=== PATIENT | female | born 1980 | race Caucasian/White ===

== ENCOUNTER 2017-06-15 06:40 | Day surgery (SDC) | payer OTHER ==
--- NOTE | 2017-06-14 13:07 | HP ---
CC: [facility] HISTORY AND PHYSICAL: DATE OF ADMISSION: 06/15/17 - [facility] The patient is scheduled for surgery tomorrow, on 06/15/17, at [facility]. ATTENDING PHYSICIAN: Dr. Satish Williamson * (DICTATED BY ROSAURA EDWARDS) CHIEF COMPLAINT: Left breast nodule, status post fine-needle aspiration revealing atypical cells, here for excisional biopsy. HISTORY OF PRESENT ILLNESS: This is a 37-year-old female who, on self examination in February, noticed what she felt was a new lump in her left breast that she had not felt previously. She had an ultrasound done in February, which revealed dense fibroglandular tissue. There are no abnormalities seen. No solid or cystic areas identified. She then went on to have a mammogram in May 2017. Again, this revealed dense fibroglandular tissue, no suspicious areas were identified. Since the nodule or change in the left breast persistent , she then was referred on here to our office, to Dr. Williamson's, on 05/29/17, for evaluation. Prior to this, the patient has no prior history of breast disease or previous breast biopsies. She does take control pills, has been on these without a change in dose or type for several years. She has no prior pregnancies. Her family history is positive for a maternal great grandmother diagnosed with breast cancer. She also later had a history of paternal second cousins, two of those with breast cancer. On our evaluation, we were able to identify dominant nodule between the 1 to 2 o 'clock position of the left breast. This measured 8 to 10 mm in size. It was firm and mobile, but felt to be solid on examination. An ultrasound was done. This revealed a hypoechogenic region on the ultrasound, which correlates with the palpable findings. This measured 9 x 9 mm, in the same location. Back on 05/29/17, we did do a fine needle aspiration under ultrasound guidance. We have since received the cytology. This revealed atypical ductal epithelial cells with mild architectural disorder; scattered, intact, single epithelial cells. This was from [facility]. In light of this finding, we discussed with the patient that we felt she would be best served to have an excisional biopsy to evaluate the entire nodule and rule out any atypia, atypical hyperplasia, of course malignancy. We made her aware that it may possibly be fibrocystic condition only, but without tissue diagnosis, we cannot confirm that and so at this time, we are having the patient have it scheduled at this time for excisional biopsy of the left breast nodule. We will do this with ultrasound evaluation by Dr. Williamson and placement of a wire to guide the biopsy. The patient understands the concerns. She wishes to proceed with a definitive diagnosis and excisional biopsy as planned. The patient is scheduled at [facility] on 06/15/17, for this procedure, to be done by Dr. Williamson. PAST MEDICAL HISTORY: She really has no chronic medical disorders. Medically, she is in good health. She has no history of cardiac disease, asthma or any chronic medical disorders. PAST SURGICAL HISTORY: She did have prior surgery. She had a laceration of a tendon of right pointer finger in [place] and had a repair of the tendon done. She had extraction of some teeth done as well surgically, otherwise no other surgical procedures. MEDICATIONS: 1. She is on Ortho TriCyclen, which she takes daily. 2. Vitamin E 100 units p.o. daily. 3. Multivitamin. ALLERGIES: She has allergies to SULFA, she has a rash, and does not take that. FAMILY HISTORY: As mentioned previously. After asking questions with her family, she was able to identify that her maternal great grandmother was diagnosed with breast cancer and had bilateral mastectomies in her early 50s, late 40s. She has two paternal second cousins with breast cancer. They were both in their 40s. Her mother has no prior history of ovarian cancer or breast cancer and no other first- degree relatives. SOCIAL HISTORY: She is engaged. She works at [employer]. She has no children. No prior pregnancies. She is a nonsmoker. No history of alcohol use other than social. Occasional glass of wine. No history of hepatitis. REVIEW OF SYSTEMS: Reveals that she is in good health. She has occasional environmental allergies that she takes antihistamine for occasionally. PHYSICAL EXAMINATION VITAL SIGNS: Here in the office, revealed her weight to be 143 pounds. Her blood pressure is 104/54, her pulse is 64 and regular, her BMI is 22.4. HEENT: Within normal limits. NECK: Supple. There is no JVD or carotid bruits. Her thyroid is felt to be normal. There is no lymphadenopathy within the neck, subclavicular area. LUNGS: Her lungs are clear throughout. HEART: Regular rhythm, without a murmur. BREAST: Breast exam was done. The right breast reveals normal exam. There are no masses. The left breast revealed a firm nodule, which is very mobile, in the 1 to 2 o'clock position of the left breast. This was measured to be exactly 4 cm from the edge of the areola in the left breast. The patient is not tender on examination. The exam on 06/12/17 is unchanged in regards to the palpable nodule compared to her exam on 05/29/17. Both axilla were examined and found to be negative. ABDOMEN: Soft and nontender. There are no masses. EXTREMITIES: Revealed a full range of motion, without limitations. NEUROLOGIC: She is alert and oriented x3. She is nonfocal and grossly intact. Upper extremities bilaterally and lower extremities are equal in strength. IMPRESSION: Nodule, which was first noticed by the patient in February 2017, has persisted, with fine needle aspiration revealing some atypical cells, which we feel requires further evaluation with excisional biopsy. Mammogram is negative and ultrasound on our evaluation revealed a hypoechogenic region, which we feel to be solid or fibrotic, requiring further evaluation. PLAN/RECOMMENDATIONS: The patient will undergo surgery, excisional biopsy of this left breast nodule. We will have ultrasound and ultrasound-guided localization will be done by Dr. Williamson at the time of the surgery, followed by an excisional biopsy. The option to prescribe pain medication were given to the patient. She feels that she would like to try using antiinflammatories only and so no Tylenol with Codeine was prescribed. ROSAURA EDWARDS [id number]/[facility] #: [id number] FILIBERTO
[~2017-06-15 06:40] MED LIST: Buffered Lidocaine 0.9% SYRIN* 5 ML/SYR SYRINGE INTRADERM ONE; Famotidine IV* 10 MG/ML 2 ML (20 mg) IV ONE
[2017-06-15] MEDS ORDERED: Famotidine IV* 10 MG/ML 2 ML (20 mg) ONE (06:45)
[2017-06-15] MEDS ORDERED: Lidocaine 1% INJ* 10 MG/ML 30 ML SDV ONE (07:14)
[2017-06-15] MEDS ORDERED: Bupivacaine 0.5% W/EPI SDV* 30 ML VIAL ONE (07:15)
[2017-06-15] MEDS ORDERED: Bupivacaine 0.5% SDV PF* 30 ML VIAL ONE (07:15)
[2017-06-15] MEDS ORDERED: ceFAZolin 2 GM PREMIX (*) 50 ML IVPB ONE (07:18)
[2017-06-15] MEDS ORDERED: Lidocaine 2% PF * 5 ML VIAL ONE (07:35)
[2017-06-15] MEDS ORDERED: Ondansetron INJ* 2 MG/ML VIAL ONE (07:35)
[2017-06-15] MEDS ORDERED: Dexamethasone IV* 4 MG/ML 1 ML (4 MG) ONE (07:35)
[2017-06-15] MEDS ORDERED: Propofol* 10 MG/ML 20 ML BTL IV PUSH ONE ×3 (07:35→08:31)
[2017-06-15] MEDS ORDERED: fentaNYL* 50 MCG/ML 2 ML VIAL (100 MCG VIAL) ONE (07:35)
[2017-06-15] MEDS ORDERED: Ketorolac INJ* 30 MG/ML 1 ML VIAL ONE (07:35)
[2017-06-15] MEDS ORDERED: Midazolam* 1 MG/ML 5 ML VIAL (5 MG) ONE (07:35)
[2017-06-15] MEDS ORDERED: oxyCODONE TAB* 5 MG TAB PO PRN (07:44)
[2017-06-15] MEDS ORDERED: Acetaminophen TAB* 325 MG PO PRN (07:44)
[2017-06-15] MEDS ORDERED: DiMENhydriNATE IV* 50 MG/ML VIAL IV PUSH PRN (07:44)
[2017-06-15] MEDS ORDERED: HYDROmorphone* 1 MG/ML 1 ML SYR IV PRN (07:44)
[2017-06-15 09:06] VITALS: BP 112/72
--- NOTE | 2017-06-16 02:05 | OP ---
DATE OF OPERATION: 06/15/17 [facility] DATE OF : 78 SURGEON: Satish Williamson MD REPAIRER MAINTENANCE BUILDING: Regina Lam NP ANESTHESIOLOGIST: Sarahy Lai MD ANESTHESIA: Local plus MAC. PRE-OP DIAGNOSIS: Left breast nodule. POST-OP DIAGNOSIS: Left breast nodule. OPERATIVE PROCEDURE: Ultrasound-guided needle localization of the left breast plus excisional biopsy of the left breast. ESTIMATED BLOOD LOSS: Approximately 20 cc. INDICATIONS: The patient is a 37-year-old female who has a palpable mass located in the upper outer quadrant of the left breast. The mass is palpable, measures approximately 1 cm in diameter, is somewhat deep and visible under ultrasound. For this reason, the patient was brought in today to have the mass ultrasound guided, localized with a needle hook followed by an excisional breast biopsy for a suspicious fine needle aspiration cytology. DESCRIPTION OF PROCEDURE: The patient was taken to the procedure room. She was placed in a supine position. She was prepped and draped in the usual sterile fashion. She received preoperative antibiotics and SCDs for DVT prophylaxis. Under sedation using the ultrasound, the mass was located. This was palpable, but deep and located at approximately between 1 and 2 o'clock towards the periphery of the breast. After this was localized under ultrasound , lidocaine 1% was used to infiltrate the skin and a needle localization needle was used to guide it into the palpable and visualized mass under ultrasound and the hook was deployed, the needle was retrieved and after this was done, lidocaine 1% was used to infiltrate in the area at which point the palpation of the lesion could not be felt anymore, but one could see the needle wire well engaged. The incision was carried down towards the area of the tip of the needle. The tissue appeared to be fibrocystic disease. The tissue in the surrounding area was removed and sent as a specimen. This was then checked for hemostasis and controlled by electrocoagulation and suture ligation with 4-0 Vicryl suture, and at the end of the procedure there was no evidence of bleeding. The subcutaneous tissue was closed with 4-0 Vicryl sutures and the skin was closed with a subcuticular 4-0 Prolene suture and Steri-Strips. The specimen was sent in formalin. The patient tolerated the procedure well. She was then taken in good condition to recovery room. [id number]/[facility] #: [id number] [facility]
== END 2017-06-15 09:25 | disposition home or self-care (01) ==
LOC: OREAST 06:40
PROVIDERS: ATTEND Surgery
DX: N60.22 Fibroadenosis of left breast (principal); N60.82 Other benign mammary dysplasias of left breast; Z88.2 Allergy status to sulfonamides; Z80.3 Family history of malignant neoplasm of breast
CPT/HCPCS: 81025; 88307; J0690; J1100; J1885; J2001; J2250; J2405; J2704; J3010

== ENCOUNTER 2018-02-28 07:03 | Emergency (ER) | payer OTHER ==
[2018-02-28 07:16] VITALS: BP 114/73
--- NOTE | 2018-02-28 07:53 | RAD ---
INDICATION: Right ankle pain. TECHNIQUE: 3 views of the right ankle were obtained. FINDINGS: The bones are in normal alignment. No fracture is seen. Joint spaces appear maintained. IMPRESSION: NO EVIDENCE FOR FRACTURE.
[2018-02-28] MEDS ORDERED: Ibuprofen TAB* 600 MG PO ONE (08:02)
--- NOTE | 2018-02-28 11:26 | UC ---
Darryl Alamo Nikita, scribed for Tra Turner MD on 02/28/18 at 0714 . Lower Extremity/Ankle HPI - HPI Summary HPI Summary: This patient is a 37 year old F presenting to [facility] with a chief complaint of R ankle pain since a couple days ago. The patient rates the pain 5/10 in severity. Symptoms aggravated by nothing. Symptoms alleviated by Ibuprofen. Patient denies any recent trauma or heavy lifting. However, the patient walks about 1 mile to work every day. The patient reports she is taking oral contraceptive pills. - History of Current Complaint Stated Complaint: ANKLE INJURY Time Seen by Provider: 02/28/18 07:07 Hx Obtained From: Patient Onset/Duration: Sudden Onset, Lasting Days, Still Present Severity Initially: Moderate Severity Currently: Moderate Pain Intensity: 5 Pain Scale Used: 0-10 Numeric Aggravating Factor(s): Nothing Alleviating Factor(s): OTC Meds - ibuprofen - Allergies/Home Medications Allergies/Adverse Reactions: Allergies Allergy/AdvReac Type Severity Reaction Status Date / Time Sulfa (Sulfonamide Allergy Severe Hives Verified 02/28/18 07:07 Antibiotics) PMH/Surg Hx/FS Hx/Imm Hx - Additional Past Medical History Additional PMH: This patient is a 37 year old F presenting to [facility] with a chief complaint of R ankle pain since a couple days ago. The patient rates the pain 5/10 in severity. Symptoms aggravated by nothing. Symptoms alleviated by Ibuprofen. Patient denies any recent trauma or heavy lifting. However, the patient walks about 1 mile to work every day. Endocrine History: Other Other Endocrine History: No DM Cardiovascular History: Other Other Cardiovascular History: No CAD, HTN - Surgical History Surgical History: Yes Surgery Procedure, Year, and Place: tendon repair on finger - local. teeth removed when younger - Family History Known Family History: Positive: Diabetes, Other Family History: MS, breast CA - Social History Alcohol Use: Weekly Substance Use Type: None Smoking Status (MU): Never Smoked Tobacco Review of Systems Constitutional: Other - Denies fever Musculoskeletal: Other: - R ankle pain; denies any recent trauma or heavy lifting All Other Systems Reviewed And Are Negative: Yes Physical Exam - Summary Physical Exam Summary: VITAL SIGNS: Reviewed. GENERAL: ~Patient is a well-developed and nourished FEMALE who is lying comfortable in the stretcher. ~Patient is not in any acute respiratory distress. HEAD AND FACE: Normocephalic EYES: PERRLA, EOMI x 2. EARS: Hearing grossly intact. MOUTH: Oropharynx within normal limits. NECK: Supple, trachea is midline, no adenopathy, no JVD, no carotid bruit. CHEST: Symmetric, no tenderness at palpation LUNGS: Clear to auscultation bilaterally. No wheezing or crackles. CVS: Regular rate and rhythm, S1 and S2 present, no murmurs or gallops appreciated. ABDOMEN: Soft, non-tender. Bowel sounds are normal. No abdominal abnormal pulsations. EXTREMITIES: Full ROM in all major joints, no edema, no cyanosis or clubbing. Slight tenderness around the R medial malleolus. NEURO: Alert and oriented x 3. No acute neurological deficits. Speech is normal and follows commands. SKIN: Dry and warm Triage Information Reviewed: Yes Vital Signs: Initial Vital Signs Temp 99.1 F 02/28/18 07:12 Pulse 77 02/28/18 07:12 Resp 18 02/28/18 07:12 BP 114/73 02/28/18 07:12 Pulse Ox 100 02/28/18 07:12 Vital Signs Reviewed: Yes Diagnostics - Radiology R ankle XR Radiology Interpretation Completed By: Radiologist - NO EVIDENCE FOR FRACTURE. [facility] physician has reviewed this radiology report. Re-Evaluation - Re-Evaluation First Eval Re-Evaluation Time: 08:06 Comment: Discussed results and discharge plan with the patient. Lower Extremity Course/Dx - Course Course Of Treatment: This patient is a 37 year old F presenting to [facility] with a chief complaint of R ankle pain since a couple days ago. R ankle XR reveals NO EVIDENCE FOR FRACTURE. The pt is hemodynamically stable, alert and oriented x3. I discussed all the findings and test results with the patient. Patient was instructed to return to the urgent care or go to ER immediately if any of the symptoms return or worsens. Plan of care was discussed with the patient, and patient understands and agrees. All questions were answered to patient satisfaction. There were no further complaints or concerns. - Differential Dx/Diagnosis Differential Diagnosis/HQI/PQRI: Bursitis, Cellulitis, Contusion, Dislocation, Fracture (Closed), Gout, Sprain, Strain Provider Diagnoses: ankle swelling Discharge - Sign-Out/Discharge Documenting (check all that apply): Discharge/Admit/Transfer - Discharge Plan Condition: Stable Disposition: HOME Patient Education Materials: Ankle Sprain (DC) Referrals: Letha Nolasco MD [Primary Care Provider] - 3 Days Additional Instructions: Take medications as instructed Increase your fluid intake Return to the UC if symptoms worsen The documentation as recorded by the Darryl alejandre Nikita accurately reflects the service I personally performed and the decisions made by , Tra Turner MD.
== END 2018-02-28 08:12 | disposition home or self-care (01) ==
LOC: UCEAST 07:03
DX: M25.471 Effusion, right ankle (principal); M25.571 Pain in right ankle and joints of right foot; Z79.3 Long term (current) use of hormonal contraceptives; Z88.2 Allergy status to sulfonamides
CPT/HCPCS: 99212; A9270-GY; G0463